=== PATIENT | male | born 1985 | race Hispanic/Latino ===

== ENCOUNTER 2017-03-21 21:28 | Emergency (ER) | payer SELFPAY ==
[2017-03-21 22:06] LABS: Bilirubin Negative (Negative); Blood, Urine Negative (Negative); Glucose, Urine (Dipstick) Negative (Negative); Ketone, Urine Negative (Negative); Nitrite Negative (Negative); Protein, Urine (Dipstick) Negative (Neg-Trace)
[2017-03-21] MEDS ORDERED: Ketorolac Tromethamine 60 MG/2 ML VIAL ONE (22:52)
--- NOTE | 2017-03-21 23:41 | ULT ---
TESTICULAR ULTRASOUND WITH DOPPLER: (Singh scale, color flow and spectral doppler) 03/21/17 HISTORY: Testicular pain radiating from right groin to right flank. FINDINGS: The right testis measures 4.1 x 2.1 x 2.8 cm and the left testis measures 4.2 x 2.3 x 2.7 cm. No foc al mass or microlithiasis is seen. Symmetric blood flow is demonstrated to the testicles and the epi didymi. The right epididymis measures 1.0 x 0.7 x 0.9 cm. The left epididymis measures 1.3 x 0.7 x 1 .4 cm. Small epididymal head cysts are noted on either side. No significant hydroceles or varicocele s are identified. IMPRESSION: Small bilateral epididymal head cyst/spermatoceles, otherwise unremarkable exam. POS: ALICE
== END 2017-03-22 00:12 | disposition home or self-care (01) ==
LOC: ERS 21:28
DX: N50.811 Right testicular pain (principal); R10.31 Right lower quadrant pain
CPT/HCPCS: 76870; 81003; 93976; 96372; J1885

== ENCOUNTER 2017-11-26 14:53 | Emergency (ER) | payer SELFPAY ==
[2017-11-26] MEDS ORDERED: Lidocaine 1% w/Epinephrine 1:100K 20 ML VIAL ONE (15:45)
[2017-11-26] MEDS ORDERED: Bacitracin Zinc 1 Packet ONE (15:45)
[2017-11-26] MEDS ORDERED: Adacel (T-DAP) 0.5 ML VIAL ONE (15:45)
== END 2017-11-26 16:35 | disposition home or self-care (01) ==
LOC: ERS 14:53
DX: S01.81XA Laceration without foreign body of other part of head, initial encounter (principal); S01.111A Laceration without foreign body of right eyelid and periocular area, initial encounter; Z23 Encounter for immunization; W50.0XXA Accidental hit or strike by another person, initial encounter; Y93.66 Activity, soccer
CPT/HCPCS: 12013; 90471; 90715; J2001

== ENCOUNTER 2022-08-26 23:04 | Emergency (ER) | payer SELFPAY ==
[2022-08-26 23:24] LABS: Bilirubin Negative (Negative); Blood, Urine Negative (Negative); Clarity Clear (Clear); Glucose, Urine (Dipstick) Normal (Negative); Ketone, Urine Negative (Negative); Leukocyte Negative Leu/uL (Negative); Nitrite Negative (Negative); Protein, Urine (Dipstick) Negative (Neg-Trace); Specific Gravity, Urine 1.006 (1.002-1.036); Urobilinogen Normal mg/dL (Less than 2); pH, Urine 5.5 (5.0-9.0)
== END 2022-08-27 02:43 | disposition home or self-care (01) ==
LOC: ERS 23:04
DX: R35.0 Frequency of micturition (principal)
CPT/HCPCS: 81003; 99283

== ENCOUNTER 2022-09-08 09:17 | Emergency (ER) | payer SELFPAY ==
[2022-09-08 10:20] LABS: Bilirubin Negative (Negative); Blood, Urine Negative (Negative); Clarity Clear (Clear); Glucose, Urine (Dipstick) Normal (Negative); Ketone, Urine Negative (Negative); Leukocyte Negative Leu/uL (Negative); Nitrite Negative (Negative); Protein, Urine (Dipstick) Negative (Neg-Trace); Specific Gravity, Urine 1.022 (1.002-1.036); Urobilinogen Normal mg/dL (Less than 2)
[2022-09-08] MEDS ORDERED: Ibuprofen 200 MG TAB ONE (11:47)
[2022-09-08 15:24] LABS: Chlam.trachomatis by PCR,Urine Not Detected (NotDetected); GC N.gonorrhoeae PCR,UrineVOID Not Detected (NotDetected)
== END 2022-09-08 12:40 | disposition home or self-care (01) ==
LOC: ERS 09:17
DX: N50.89 Other specified disorders of the male genital organs (principal)
CPT/HCPCS: 76870; 81003; 87086; 87491; 87591; 93976

== ENCOUNTER 2023-03-09 09:57 | Emergency (ER) | payer SELFPAY ==
[2023-03-09 10:36] LABS: Bacteria/HPF None Seen HPF (None Seen); Bilirubin Negative (Negative); Blood, Urine Negative (Negative); CAUTI Indications for Culture Dysuria,urgency,freq; Clarity Clear (Clear); Glucose, Urine (Dipstick) Normal (Negative); Ketone, Urine Negative (Negative); Leukocyte Negative Leu/uL (Negative); Nitrite Negative (Negative); Protein, Urine (Dipstick) Negative (Neg-Trace); RBC/HPF 0-3 HPF (0-3); Specific Gravity, Urine 1.019 (1.002-1.036); Squamous Epithelial None Seen HPF (0-3); Urobilinogen Normal mg/dL (Less than 2); WBC/HPF 0-3 HPF (0-3); pH, Urine 7.5 (5.0-9.0)
[2023-03-09 10:47] LABS: Urine Culture Reflex No No
[2023-03-09] MEDS ORDERED: Ketorolac Tromethamine 30 MG/ML VIAL ONE (10:49)
[2023-03-09 11:39] LABS: #Eosinphils 0.2 thou/uL (0.0-0.7); #Monocytes 0.7 thou/uL (0.11-0.59); #Neutrophils 4.7 thou/uL (1.40-6.50); %Basophils 0.5 % (0.0-1.0); %Eosinophils 2.4 % (0.0-10.0); %Lymphocytes 29.3 % (21.0-51.0); %Monocytes 8.7 % (0.0-10.0); %Neutrophils 58.3 % (42.0-75.0); Hematocrit 44.4 % (42.0-52.0); Hemoglobin 15.7 g/dL (14.0-18.0); Mean Corpuscular HGB CONC 35.4 g/dL (32.0-36.0); Mean Corpuscular Hemoglobin 32.2 pg (27.0-31.0); Mean Corpuscular Volume 91.2 fl (78.0-98.0); Mean Platelet Volume 8.8 fL (7.4-10.4); Platelet Count 343 10x3/uL (130-400); RBC Distribution Width 11.3 % (11.5-14.5); Red Blood Cell (RBC) Count 4.87 mill/uL (4.70-6.10)
[2023-03-09 12:03] LABS: ALT (SGPT) 37 U/L (8-55); AST (SGOT) 27 U/L (5-34); Albumin 4.3 g/dL (3.5-5.0); Alkaline Phosphatase 92 U/L (40-110); Anion Gap 13 mmol/L (10-20); BUN (Urea Nitrogen) 15 mg/dL (8.9-20.6); Bilirubin, Total 0.6 mg/dL (0.2-1.2); Calc. Creatinine Clearance 0 mL/min (70-130); Calcium 9.5 mg/dL (7.8-10.44); Carbon Dioxide 27 mmol/L (22-29); Chloride 104 mmol/L (98-107); Estimated GFR 101; Globulin 3.4 g/dL (2.4-3.5); Glucose 86 mg/dL (70-105); Lipase 41 U/L (8-78); Potassium 4.8 mmol/L (3.5-5.1); Protein, Total 7.7 g/dL (6.0-8.3); Sodium 139 mmol/L (136-145)
[2023-03-09 17:00] LABS: Chlam.trachomatis by PCR,Urine Not Detected (NotDetected); GC N.gonorrhoeae PCR,UrineVOID Not Detected (NotDetected)
== END 2023-03-09 11:44 | disposition home or self-care (01) ==
LOC: ERS 09:57
DX: N50.3 Cyst of epididymis (principal); F17.210 Nicotine dependence, cigarettes, uncomplicated
CPT/HCPCS: 36415; 76870; 80053; 81001; 83690; 85025; 87491; 87591; 93976; 96372; J1885

== ENCOUNTER 2025-01-14 19:35 | Emergency (ER) | payer SELFPAY ==
[~2025-01-14 19:35] MED LIST: Iopamidol-370 76% 500 ML MDV (1 ML CHARGE) ONE
[2025-01-14 20:53] LABS: #Basophils 0.06 10x3/uL (0.0-0.2); #Eosinophils 0.26 10x3/uL (0.0-0.7); #Monocytes 0.98 10x3/uL (0.11-0.59); #Neutrophils 5.32 10x3/uL (1.40-6.50); %Basophils 0.6 % (0.0-1.0); %Eosinophils 2.6 % (0.0-10.0); %Lymphocytes 33.6 % (21.0-51.0); %Monocytes 9.8 % (0.0-10.0); %Neutrophils 52.9 % (42.0-75.0); Hematocrit 44.6 % (42.0-52.0); Hemoglobin 16.0 g/dL (14.0-18.0); Mean Corpuscular Hemoglobin 31.7 pg (27.0-31.0); Mean Corpuscular Volume 88.3 fL (78.0-98.0); Platelet Count 291 10x3/uL (130-400); Red Blood Cell (RBC) Count 5.05 mill/uL (4.70-6.10); White Blood Cell (WBC) Count 10.04 10x3/uL (4.8-10.8)
[2025-01-14 21:07] LABS: ALT (SGPT) 49 U/L (Less than 45); AST (SGOT) 46 U/L (11-34); Albumin 4.6 g/dL (3.1-4.5); Alkaline Phosphatase 89 U/L (40-110); Anion Gap 15 mmol/L (10-20); BUN (Urea Nitrogen) 13 mg/dL (8.9-20.6); Bilirubin, Total 0.6 mg/dL (0.3-1.2); Calc. Creatinine Clearance 0 mL/min (70-130); Calcium 9.5 mg/dL (7.8-10.44); Carbon Dioxide 26 mmol/L (22-29); Chloride 104 mmol/L (98-107); Globulin 3.9 g/dL (2.4-3.5); Glucose 107 mg/dL (70-105); Lipase 37 U/L (8-78); Potassium 3.9 mmol/L (3.5-5.1); Sodium 141 mmol/L (136-145)
[2025-01-14 21:11] LABS: Bacteria/HPF None Seen HPF (None Seen); CAUTI Indications for Culture Pelvic or flank pain; Glucose, Urine (Dipstick) Normal (Negative); Leukocyte Negative Leu/uL (Negative); Protein, Urine (Dipstick) 10 mg/dL (Neg-Trace); RBC/HPF 0-3 HPF (0-3); Specific Gravity, Urine 1.030 (1.002-1.036); WBC/HPF 0-3 HPF (0-3)
[2025-01-14 21:15] LABS: Urine Culture Reflex No No
[2025-01-14] MEDS ORDERED: Ketorolac Tromethamine 30 MG (1 mL) VIAL ONE (22:37)
[2025-01-15 07:19] LABS: Chlam.trachomatis by PCR,Urine Not Detected (NotDetected); GC N.gonorrhoeae PCR,UrineVOID Not Detected (NotDetected)
== END 2025-01-14 22:50 | disposition home or self-care (01) ==
LOC: ERS 19:35
DX: N43.3 Hydrocele, unspecified (principal); K76.0 Fatty (change of) liver, not elsewhere classified; F17.210 Nicotine dependence, cigarettes, uncomplicated
CPT/HCPCS: 36415; 74177; 76870; 80053; 81001; 83690; 85025; 87491; 87591; 93976; 96374; J1885; Q9967

== ENCOUNTER 2025-02-19 00:27 | Emergency (ER) | payer SELFPAY ==
[2025-02-19 02:03] LABS: Bacteria/HPF None Seen HPF (None Seen); CAUTI Indications for Culture Pelvic or flank pain; Glucose, Urine (Dipstick) Normal (Negative); Leukocyte Negative Leu/uL (Negative); Protein, Urine (Dipstick) Negative (Neg-Trace); RBC/HPF None Seen HPF (0-3); Specific Gravity, Urine 1.028 (1.002-1.036); WBC/HPF 0-3 HPF (0-3)
[2025-02-19 02:06] LABS: Urine Culture Reflex No No
[2025-02-19] MEDS ORDERED: Ketorolac Tromethamine 30 MG (1 mL) VIAL ONE (04:06)
[2025-02-20 00:39] LABS: Chlam.trachomatis by PCR,Urine Not Detected (NotDetected); GC N.gonorrhoeae PCR,UrineVOID Not Detected (NotDetected)
== END 2025-02-19 05:39 | disposition home or self-care (01) ==
LOC: ERS 00:27
DX: N50.812 Left testicular pain (principal); N50.811 Right testicular pain; N43.3 Hydrocele, unspecified; F17.210 Nicotine dependence, cigarettes, uncomplicated
CPT/HCPCS: 76870; 81001; 87491; 87591; 93976; 96372; 99284; J1885